=== PATIENT | female | born 2000 | race Caucasian/White ===

== ENCOUNTER 2022-06-07 14:07 | Emergency (ER) | payer OTHER, SELFPAY ==
[2022-06-07 14:15] VITALS: BP 105/70; PULSE 88; RESP 16; TEMP 36.1; O2SAT 98; BMI 18.1
--- NOTE | 2022-06-07 14:41 | CRLHL7_ITS ---
For Patients: As a result of the Century Cures Act, medical imaging exams and procedure reports are released immediately into your electronic medical record. You may view this report before your referring provider. If you have questions, please contact your health care provider. INDICATION: NECK PAIN, INJURY YESTERDAY TECHNIQUE: Cervical spine 3 views. COMPARISON: None. FINDINGS: Bones: Alignment is normal. No fractures or bone lesions. Joint spaces: Disc spaces are normal. Facet joints are normal. Soft tissues: Negative. IMPRESSION: Negative cervical spine. Dictated by: Jose Enrique Cross MD @ 06/07/2022 15:12:58 (Electronically Signed)
--- NOTE | 2022-06-07 15:21 | ED_ITS ---
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 The time she felt okay maybe a little bit a nausea that abated really quickly, she did not have any numbness tingling or weakness, there is no loss of consciousness, denies a headache. She was fine all yesterday, but today she woke up and she noted she had stiffness in her neck, she describes a stiffness is paraspinal in radiation but there is a component to some pain along the bones when she palpates. No past history of any neck pain or stiffness, describes her pain is maybe 2 to 3/10, with no radiation. Has not taking anything medications speaking for the discomfort. MD complaint: neck pain and neck injury Onset (ago): day(s) Place: work Severity: moderate Quality: aching Duration: constant Relieving factors: none Exacerbating factors: none Context: fall Treatments prior to arrival: none Related Data Home Medications Medication Instructions Recorded Confirmed drospirenone 3 mg-ethinyl tab 06/07/22 estradiol 0.03 mg tablet sertraline 50 mg tablet mg 06/07/22 Allergies Allergy/AdvReac Type Severity Reaction Status Date / Time Penicillins Allergy Mild Rash Verified 06/07/22 14:22 Review of Systems Status of ROS: Reports: 6 or more systems reviewed and unremarkable except as noted in History and below [facility] Medical History Acute bacterial tonsillitis Anxiety Strep throat Social History Smoking Status: Never smoker Do you use any of these nicotine containing products: None Second hand tobacco smoke exposure: No How often do you have a drink containing alcohol: never AUDIT-C Alcohol total score: 0 Non-prescribed substance use: denies use service: No Exam Narrative: Exam Narrative: 22-year-old female presents here with her mom for evaluation of a neck injury. Pupils equal round reactive to light she is nontoxic her neck is supple full range of motion greater than 20 cm, she is flexion to within 8, lateral flexion is full at 40?, rotation is greater than 70?, some mild tenderness is noted across the paraspinal muscles, over cervical spine on palpation, there is no percussion tenderness, her neck distraction and compression are normal. 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 Const: Vital Signs, click to edit/add: Vital Signs - 24 hr 06/07/22 14:15 Temperature 96.9 F L Pulse Rate [Right Pulse Oximeter] 88 Respiratory Rate 16 Blood Pressure [Ri ght Upper Arm] 105/70 Pulse Oximetry 98 Oxygen Delivery Me thod Room Air Documenting provider has reviewed patient's vital signs: yes Course Vital Signs Vital signs: Initial Vital Signs Temperature 96.9 F L 06/07/22 14:15 Temperature Source Temporal Artery Scan 06/07/22 14:15 Pulse Rate 88 06/07/22 14:15 Pulse Rhythm 06/07/22 14:15 Respiratory Rate 16 06/07/22 14:15 Blood Pressure 105/70 06/07/22 14:15 Blood Pressure Mean 81 06/07/22 14:15 Blood Pressure Position Sitting 06/07/22 14:15 Pulse Oximetry 98 06/07/22 14:15 Oxygen Delivery Method 06/07/22 14:15 Vital Signs Temperature 96.9 F L 06/07/22 14:15 Pulse Rate 88 06/07/22 14:15 Respiratory Rate 16 06/07/22 14:15 Blood Pressure 105/70 06/07/22 14:15 Pulse Oximetry 98 06/07/22 14:15 Oxygen Delivery Method 06/07/22 14:15 Temperature 96.9 F L 06/07/22 14:15 Pulse Rate 88 06/07/22 14:15 Respiratory Rate 16 06/07/22 14:15 Blood Pressure 105/70 06/07/22 14:15 Pulse Oximetry 98 06/07/22 14:15 Oxygen Delivery Method 06/07/22 14:15 MDM - Neck Pain/Injury Differential Diagnosis Differential diagnosis: Likely disc disorder of cervical region, whiplash injury to neck, closed subluxation of cervical spine, fracture of cervical spine without lesion of spinal cord, cervical radiculopathy, vertebral artery dissection, torticollis, cervical spondylosis and strain of neck muscle Medical Records Attestation: I reviewed the patient's medical records. Imaging Data Cervical spine x-ray: Attestation: I have reviewed the pertinent imaging results. My impression: Neck x-ray shows no fracture subluxation Radiologist's impression: Patient: MODESTA [place] Facility: [facility] Site . Site : 2002 Study: XRay Spine Cervical 3 VIEW-06/07/2022 3:01:28 PM Ordering Physician: Lee Palmer Final Report: INDICATION: NECK PAIN, INJURY YESTERDAY TECHNIQUE: Cervical spine 3 views. COMPARISON: None. FINDINGS: Bones: Alignment is normal. No fractures or bone lesions. Joint spaces: Disc spaces are normal. Facet joints are normal. Soft tissues: Negative. IMPRESSION: Negative cervical spine. Dictated by: Jose Enrique Cross MD @ 06/07/2022 15:12:58 (Electronic Signature) Discharge Plan Discharge Clinical Impression: Strain of neck muscle Patient Disposition: Home, Self-Care Condition: Stable Additional Instructions: Home rest use of ice ibuprofen this should improve x-rays are negative. Prescriptions: No Action sertraline 50 mg tablet drospirenone-ethinyl estradiol 3-0.03 mg tablet Follow Up/Referrals: Melody Sahu MD [Primary Care Provider] - Stand Alone Forms: [employer] Info Instructions
== END 2022-06-07 16:08 | disposition home or self-care (01) ==
PROVIDERS: Emergency Provider Family Medicine; PCP Family Medicine
DX: S16.1XXA Strain of muscle, fascia and tendon at neck level, initial encounter (principal); W19.XXXA Unspecified fall, initial encounter
CPT/HCPCS: 72040; 99283; 99284

== ENCOUNTER 2023-04-19 14:30 | Emergency (ER) | payer OTHER, SELFPAY ==
[2023-04-19] VITALS (12 sets, daily range): BP systolic 97–125; BP diastolic 69–78; PULSE 69–97; RESP 16–20; TEMP 36.4; O2SAT 96–100; BMI 18.2
--- NOTE | 2023-04-19 15:39 | CRLHL7_ITS ---
For Patients: As a result of the Century Cures Act, medical imaging exams and procedure reports are released immediately into your electronic medical record. You may view this report before your referring provider. If you have questions, please contact your health care provider. INDICATION: Right lower quadrant pain. TECHNIQUE: Ultrasound pelvis transabdominal and transvaginal for better assessment or to better visualize the endometrium. Real-time sonographic images with spectral and color Doppler imaging of the ovaries were obtained. COMPARISON: None. FINDINGS: Uterus: 7.9 x 3.6 x 5.4 cm. Normal echotexture of the myometrium. No masses. Endometrium: Transvaginal imaging was performed to better evaluate the endometrium. Endometrial thickness measures 5 mm. No sign of endometrial mass or fluid. Right ovary measures 3.1 x 1.4 x 1.1 cm. Left ovary measures 1.8 x 1.0 x 1.4 cm. No ovarian or adnexal masses. Normal blood flow is demonstrated in both ovaries. Cul-de-sac: No significant free fluid. IMPRESSION: Unremarkable pelvic ultrasound. No acute findings or adnexal mass. Dictated by Alli Phipps MD @ 04/19/2023 6:30:39 PM (Electronically Signed)
[2023-04-19] MEDS: KETOROLAC 15 MG/ML inj IVP (15:50)
[2023-04-19 16:00] LABS: Appearance Urine Clear (Clear); Bilirubin Urine Negative (Negative); Blood Urine Negative (Negative); Color Urine Yellow (Yellow); Glucose Urine Negative (Negative); Ketones Urine Trace (Negative); Leukocyte Esterase Urine Negative (Negative); Nitrite Urine Negative (Negative); Protein Urine Negative (Negative); Urobilinogen Urine 0.2 (0.2-1.0)
[2023-04-19 16:03] LABS: Basophils Percent Auto 0.2 % (0.0-3.0); Eosinophils Percent Auto 1.7 % (0.0-7.0); Hematocrit 35.9 % (33.0-51.0); Hemoglobin* 11.8 gm/dL (12.0-16.0); Lymphocytes Percent Auto 9.8 % (20-44); Mean Corpuscular HGB Conc 33 gm/dL (32-36); Mean Corpuscular Hemoglobin 30 pg (26-34); Mean Corpuscular Volume 91 fL (80-100); Monocytes Percent Auto 2.3 % (0.0-11.0); Platelet Count* 242 K/uL (140-440); RDW Coefficient of Variation % 13.2 % (11.5-15.5); Red Blood Count 3.93 m/uL (4.00-5.20); White Blood Count* 17.91 K/uL (4.50-11.00)
[2023-04-19 16:06] LABS: Slide Review Reflex No
[2023-04-19 16:07] LABS: Lactate* 1.4 mmol/L (0.5-1.9)
[2023-04-19 16:08] LABS: RBC Urine 0-2 (0-2); Squamous Epithelial Cell Urine Few (None-Few); WBC Urine 0-2 (0-5)
[2023-04-19 16:14] LABS: Albumin* 3.9 g/dL (3.3-5.0); Chloride* 103 mmol/L (96-114); Sodium* 136 mmol/L (135-149)
[2023-04-19 16:16] LABS: Creatinine* 0.8 mg/dL (0.5-1.5); Est. Creatinine Clearance* 93.18; Estimated Glomerular Filt Rate 108 ml/min
[2023-04-19 16:17] LABS: Alanine Aminotransferase* 14 U/L (4-35); Alkaline Phosphatase* 51 U/L (40-150); Aspartate Amino Transferase* 24 U/L (12-35); Bilirubin Total* 0.2 mg/dL (0.1-1.5); Blood Urea Nitrogen* 16 mg/dL (5-24); Carbon Dioxide* 24 mmol/L (20-32); Total Protein* 7.3 g/dL (6.0-8.3)
[2023-04-19 16:18] LABS: Calcium* 8.9 mg/dL (8.4-10.6); Glucose* 82 mg/dL (60-115)
[2023-04-19 16:20] LABS: C Reactive Protein* 0.6 mg/dL (0.5-1.0)
--- NOTE | 2023-04-19 16:40 | CRLHL7_ITS ---
For Patients: As a result of the Century Cures Act, medical imaging exams and procedure reports are released immediately into your electronic medical record. You may view this report before your referring provider. If you have questions, please contact your health care provider. INDICATION: Right lower quadrant pain.. TECHNIQUE: CT abdomen and pelvis acquired with 57 cc Isovue 370 IV contrast. COMPARISON: None. FINDINGS: Lower chest: Unremarkable. Liver: Unremarkable. Normal in size and attenuation. No suspicious masses. Gallbladder and bile ducts: Unremarkable. No stones or inflammation. No biliary dilatation. Pancreas: Unremarkable. No mass or inflammation. Spleen: Unremarkable. Normal in size. No masses. Adrenal glands: Unremarkable. No nodules. Kidneys: Unremarkable. No suspicious masses, stones, or hydronephrosis. GI tract: No bowel obstruction. The appendix is nondilated measuring up to 6 millimeters in diameter. No significant wall thickening. Mild mucosal enhancement, likely reactive. T Vasculature: Abdominal aorta is normal in caliber. Mesenteric arteries are patent. Lymph nodes: No lymphadenopathy. Peritoneum/Abdominal Wall: Mild diffuse mesenteric stranding trace fluid in the pelvis.. Pelvis: Slight heterogeneity of the uterus. Adnexa are not well visualized. Bones: Unremarkable for age IMPRESSION: Appendix is within normal limits. Mild diffuse mesenteric stranding, nonspecific. Trace fluid in the pelvis also nonspecific, may be physiologic. Please note that all CT scans at this facility use dose modulation, iterative reconstruction, and/or weight-based dosing when appropriate to reduce radiation dose to as low as reasonably achievable. Dictated by Delmy Lyles MD @ 04/19/2023 7:24:57 PM (Electronically Signed)
[2023-04-19 16:59] LABS: Potassium* 3.7 mmol/L (3.6-5.1)
--- NOTE | 2023-04-19 17:14 | ED.ABDPAIN ---
HPI - Abdominal Pain General Time Seen by Provider: 17:14 Date Seen: 04/19/23 Chief Complaint: Abdominal Pain Stated Complaint: Abdominal pain Time Seen by Provider: 04/19/23 15:38 Source: patient, family and RN notes reviewed Mode of arrival: ambulatory Limitations: no limitations History of Present Illness HPI narrative: Patient is a 22-year-old female coming in accompanied by her mom whom is a nurse in our facility. She has a complaint of right lower quadrant abdominal pain that started around 1:00 p.m. today. She lunch at 11:30 a.m. without any difficulty, sometime after that the right lower quadrant abdominal pain developed. She has become anorexic, some nausea but no vomiting. Did have a normal bowel movement this morning. Is about 1 week or so post menstrual cycle, is not sexually active. No urinary symptoms. Movement and walking hurt, her pain is in her right lower quadrant. She has never had any abdominal surgery before. Her grandfathers had appendicitis before. Related Data Home Medications Medication Instructions Recorded Confirmed drospirenone 3 mg-ethinyl 1 tab PO DAILY 04/19/23 04/19/23 estradiol 0.03 mg tablet sertraline 50 mg tablet 50 mg PO DAILY 04/19/23 04/19/23 Allergies Allergy/AdvReac Type Severity Reaction Status Date / Time Penicillins Allergy Mild Rash Verified 04/19/23 18:12 Review of Systems Status of ROS Reports: 6 or more systems reviewed and unremarkable except as noted in History and below [facility] Medical History Anxiety ?F41.9 - Anxiety disorder, unspecified (ICD-10) Acute bacterial tonsillitis ?J03.80 - Acute tonsillitis due to other specified organisms (ICD-10) ?B96.89 - Other specified bacterial agents as the cause of diseases classified elsewhere (ICD-10) Strep throat ?J02.0 - Streptococcal pharyngitis (ICD-10) Social History Smoking Status: Never smoker Do you use any of these nicotine containing products: None Second hand tobacco smoke exposure: No How often do you have a drink containing alcohol: never AUDIT-C Alcohol total score: 0 Non-prescribed substance use: denies use service: No Exam Const: Vital Signs, click to edit/add: Vital Signs - 24 hr 04/19/23 14:48 04/19/23 17:56 04/19/23 18:00 Temperature 97.6 F Pulse Rate Pulse Rate [Pulse Oximeter] 97 69 Respiratory Rate 16 18 20 Blood Pressure [Ri ght Upper Arm] 125/74 114/78 108/69 Pulse Oximetry 99 99 99 Oxygen Delivery Me thod Room Air Room Air Room Air 04/19/23 18:30 04/19/23 18:45 Temperature Pulse Rate 91 85 Pulse Rate [Pulse Oximeter] Respiratory Rate Blood Pressure [Ri ght Upper Arm] Pulse Oximetry 98 98 Oxygen Delivery Me thod Documenting provider has reviewed patient's vital signs: yes Common normals: no apparent distress, average body habitus, oriented x3, no limitations, healthy appearing, alert and well nourished General appearance: cooperative, comfortable, well kempt and well developed Nutritional appearance: thin HENMT: Common normals: normocephalic, head/scalp atraumatic, hearing grossly normal bilaterally, external ears normal, external nose normal, moist oral mucous membranes, oropharynx normal, dentition normal and gingiva normal Head and scalp: normocephalic and atraumatic Nose: external nose normal External ear: external ears normal Eye: Common normals: PERRL, EOMs intact bilaterally, conjunctivae normal and no scleral icterus Conjunctiva: conjunctiva(e) normal Pupil: PERRL Neck & C-Spine: Common normals: full ROM, no lymphadenopathy and supple Resp: Common normals: normal respiratory effort, no retractions, no use of accessory muscles and clear to auscultation bilaterally Auscultation: clear to auscultation bilaterally Cardio: Common normals: regular rate, regular rhythm, S1 normal heart sound, S2 normal heart sound, no gallops, no clicks and no murmurs Rate: regular rate Rhythm: regular rhythm Heart sounds: S1 normal and S2 normal GI: Common normals: Normal to inspection, nondistended, normoactive bowel sounds present, soft to palpation, no hepatosplenomegaly and no masses Palpation: soft and no hepatosplenomegaly Other: Right lower quadrant tenderness with some mild guarding no rebound. Neuro: Common normals: oriented x3 Sensorium/orientation: alert Psych: Appearance: well kempt Course Course Hospital Course: Due to the volume and weight in the ED, orders for labs and imaging were placed prior to seen patient. Again, mom is a nurse that facility and was concerned about appendicitis. We did discuss possibility of ovarian torsion. We started with a pelvic ultrasound and labs, white blood count came back elevated and there was no reported ovarian cyst on the ultrasound, normal blood flow to ovaries on the preliminary watershed tender report. Thus, unsure decision, decision was made to proceed with CT abdomen pelvis with IV contrast to rule out appendicitis and other intra abdominal pathology. Patient did receive initial 15 mg IV Toradol and 4 mg IV morphine. At the time of evaluation she is still having pain, worse with movement. Will give a subsequent 2 mg IV morphine for pain management while we await our imaging results back. Reevaluation(s) Time of Reevaluation #1: 18:48 Reevaluation #1: Have reviewed the official reading of the ultrasound as being benign, normal. She is feeling better after the morphine. We will await the CT imaging to be read. Time of Reevaluation #2: 19:51 Reevaluation #2: They have decided to proceed home, will give medications from [facility] as requested. Scripts for oxycodone and zofran sent. Consultations Consultation #1: Did call Dr. Duong to review case with her; she thinks that this may be early enteritis vs mesenteric adenitis, definitely non-specific at this time and conservative management recommended. Observation in the hospital with IVF/pain management, repeat exam/labs in am vs going home for close outpatient follow up with well-versed mom whom is ED RN. Reviewed with patient and mom and they are deciding on path, patient not having pain control yet (15mg toradol, 4mg morphine, oral ibuprofen earlier prior to arrival). Time: 19:36 Vital Signs Vital signs: Initial Vital Signs Temperature 97.6 F 04/19/23 14:48 Temperature Source Temporal Artery Scan 04/19/23 14:48 Pulse Rate 97 04/19/23 14:48 Respiratory Rate 16 04/19/23 14:48 Blood Pressure 125/74 04/19/23 14:48 Blood Pressure Mean 91 04/19/23 14:48 Blood Pressure Position Sitting 04/19/23 14:48 Pulse Oximetry 99 04/19/23 14:48 Oxygen Delivery Method Room Air 04/19/23 14:48 Vital Signs Temperature 97.6 F 04/19/23 14:48 Pulse Rate 97 04/19/23 14:48 Respiratory Rate 16 04/19/23 14:48 Blood Pressure 125/74 04/19/23 14:48 Pulse Oximetry 99 04/19/23 14:48 Oxygen Delivery Method Room Air 04/19/23 14:48 Temperature 97.6 F 04/19/23 14:48 Pulse Rate 85 04/19/23 18:45 Respiratory Rate 20 04/19/23 18:00 Blood Pressure 108/69 04/19/23 18:00 Pulse Oximetry 98 04/19/23 18:45 Oxygen Delivery Method Room Air 04/19/23 18:00 MDM - Abdominal Pain Lab Data Attestation: I reviewed the patient's lab results. Labs: Lab Results 04/19/23 04/19/23 Range/Units 15:14 15:50 WBC 17.91 H (4.50-11.00) K/uL RBC 3.93 L (4.00-5.20) m/uL Hgb 11.8 L (12.0-16.0) gm/dL Hct 35.9 (33.0-51.0) % MCV 91 (80-100) fL MCH 30 (26-34) pg MCHC 33 (32-36) gm/dL RDW Coeff of Pinky 13.2 (11.5-15.5) % Plt Count 242 (140-440) K/uL Neut % (Auto) 85.0 H (42.0-72.0) % Lymph % (Auto) 9.8 L (20-44) % [place] % (Auto) 2.3 (0.0-11.0) % Eos % (Auto) 1.7 (0.0-7.0) % Baso % (Auto) 0.2 (0.0-3.0) % Neut # (Auto) 15.20 H (1.7-7.0) K/uL Lymph # (Auto) 1.80 (0.90-2.90) K/uL [place] # (Auto) 0.40 (0.00-0.90) K/UL Eos # (Auto) 0.30 (0.00-0.50) K/uL Baso # (Auto) 0.00 (0.00-0.30) K/uL Abs Immat Gran (auto) 0.20 (0.00-0.30) K/uL Imm/Tot Granulo (auto) 1.0 % Sodium 136 (135-149) mmol/L Potassium 3.7 (3.6-5.1) mmol/L Chloride 103 (96-114) mmol/L Carbon Dioxide 24 (20-32) mmol/L BUN 16 (5-24) mg/dL Creatinine 0.8 (0.5-1.5) mg/dL Estimated Creat Clear 93.18 Estimated GFR 108 ml/min Glucose 82 (60-115) mg/dL Lactate 1.4 (0.5-1.9) mmol/L Calcium 8.9 (8.4-10.6) mg/dL Total Bilirubin 0.2 (0.1-1.5) mg/dL AST 24 (12-35) U/L ALT 14 (4-35) U/L Alkaline Phosphatase 51 (40-150) U/L C-Reactive Protein 0.6 (0.5-1.0) mg/dL Total Protein 7.3 (6.0-8.3) g/dL Albumin 3.9 (3.3-5.0) g/dL Urine Color Yellow (Yellow) Urine Appearance Clear (Clear) Urine pH 7.0 (5.0-8.5) Ur Specific [place] 1.020 (1.000-1.030) Urine Protein Negative (Negative) Urine Glucose (UA) Negative (Negative) Urine Ketones Trace A (Negative) Urine Blood Negative (Negative) Urine Nitrite Negative (Negative) Urine Bilirubin Negative (Negative) Urine Urobilinogen 0.2 (0.2-1.0) Ur Leukocyte Esterase Negative (Negative) Urine RBC 0-2 (0-2) Urine WBC 0-2 (0-5) Ur Squamous Epith Cells Few (None-Few) Urine Bacteria None (None) Imaging Data CT scan - abdomen: Attestation: I have reviewed the pertinent imaging results. Radiologist's impression: Patient: MODESTA [place] Facility:?[facility] Patient ID:?[id number] Site Patient ID:?[id number]. Site :?2000 Study:?CT Abdomen/Pelvis W/ISOVUE 370 57CC-04/19/2023 5:28:20 PM Ordering Physician:?Trice Prescott Final Report: INDICATION: Right lower quadrant pain.. TECHNIQUE: CT abdomen and pelvis acquired with 57 cc Isovue 370 IV contrast. COMPARISON: None. FINDINGS: Lower chest: Unremarkable. Liver: Unremarkable. Normal in size and attenuation. No suspicious masses. Gallbladder and bile ducts: Unremarkable. No stones or inflammation. No biliary dilatation. Pancreas: Unremarkable. No mass or inflammation. Spleen: Unremarkable. Normal in size. No masses. Adrenal glands: Unremarkable. No nodules. Kidneys: Unremarkable. No suspicious masses, stones, or hydronephrosis. GI tract: No bowel obstruction. The appendix is nondilated measuring up to 6 millimeters in diameter. No significant wall thickening. Mild mucosal enhancement, likely reactive. T Vasculature: Abdominal aorta is normal in caliber. Mesenteric arteries are patent. Lymph nodes: No lymphadenopathy. Peritoneum/Abdominal Wall: Mild diffuse mesenteric stranding trace fluid in the pelvis.. Pelvis: Slight heterogeneity of the uterus. Adnexa are not well visualized. Bones: Unremarkable for age IMPRESSION: Appendix is within normal limits. Mild diffuse mesenteric stranding, nonspecific. Trace fluid in the pelvis also nonspecific, may be physiologic. Please note that all CT scans at this facility use dose modulation, iterative reconstruction, and/or weight-based dosing when appropriate to reduce radiation dose to as low as reasonably achievable. Dictated by Delmy Lyles MD @ 04/19/2023 7:24:57 PM (Electronic Signature) US abdomen: Attestation: I have reviewed the pertinent imaging results. Radiologist's impression: Patient: [facility] Facility:?[facility] Patient ID:?[id number] Site Patient ID:?[id number]. Site :?2000 Study:?US Pelvis TA/TV-04/19/2023 4:41:25 PM Ordering Physician:?Trice Prescott Final Report: INDICATION: Right lower quadrant pain. TECHNIQUE: Ultrasound pelvis transabdominal and transvaginal for better assessment or to better visualize the endometrium. Real-time sonographic images with spectral and color Doppler imaging of the ovaries were obtained. COMPARISON: None. FINDINGS: Uterus: 7.9 x 3.6 x 5.4 cm. Normal echotexture of the myometrium. No masses. Endometrium: Transvaginal imaging was performed to better evaluate the endometrium. Endometrial thickness measures 5 mm. No sign of endometrial mass or fluid. Right ovary measures 3.1 x 1.4 x 1.1 cm. Left ovary measures 1.8 x 1.0 x 1.4 cm. No ovarian or adnexal masses. Normal blood flow is demonstrated in both ovaries. Cul-de-sac: No significant free fluid. IMPRESSION: Unremarkable pelvic ultrasound. No acute findings or adnexal mass. Dictated by Alli Phipps MD @ 04/19/2023 6:30:39 PM (Electronic Signature) Critical Care Time Critical Care Time Critical Care Time: No Discharge Plan Discharge Clinical Impression: Abdominal pain, acute, right lower quadrant Patient Disposition: Home, Self-Care Condition: Stable Instructions: Acute Abdominal Pain (ED), Mesenteric Adenitis (ED), Enteritis (ED) Additional Instructions: Pain management with Tylenol 1000 mg 3 times a day baseline, can supplement with ibuprofen per bottle directions. Have sent prescription for oxycodone for severe pain, can try half a tablet to start with. Zofran is sent in case you do develop nausea and vomiting either from your stomach symptoms or from the oxycodone. The surgeon recommended clinic follow-up in the next 24-48 hours or return to the ER if clinically worsening. If this is mesenteric adenitis developing, could be sick for about 1 week. Please seek re-evaluation if there is any concern. Note provided to be off work for the next few days. Recommend frequent sips of clear liquids at this time. As you feel better, can advance your diet back to normal solids. Activity Level: Activity as Tolerated Prescriptions: No Action sertraline 50 mg tablet 50 mg PO DAILY drospirenone-ethinyl estradiol 3-0.03 mg tablet 1 tab PO DAILY Follow Up/Referrals: Melody Sahu MD [Primary Care Provider] - Stand Alone Forms: [employer] Info Instructions
[2023-04-19] MEDS: 0.9 % SODIUM CHLORIDE 1000 ml 1,000 ML 500 ML IV (18:06)
[2023-04-19] MEDS: MORPHINE 2 MG/ML inj IVP ×2 (18:10→19:17)
== END 2023-04-19 20:10 | disposition home or self-care (01) ==
PROVIDERS: Emergency Provider Family Medicine; PCP Family Medicine
DX: R10.31 Right lower quadrant pain (principal)
CPT/HCPCS: 36415; 74177; 76830; 76856; 80053; 81001; 83605; 85025; 86140; 93976; 96374; 96375; 96376; 99284; J1885; J2270; J7030; Q9967